=== PATIENT | female | born 1965 | race Caucasian/White ===

== ENCOUNTER 2018-12-28 17:45 | Emergency (ER) | payer MEDICAID ==
[~2018-12-28] VITALS: Ht 160 cm; Wt 52.0 kg
[2018-12-28 17:49] VITALS: Ht 160 cm; Wt 52.0 kg
[2018-12-28] MEDS ORDERED: KETOROLAC 30 MG INJ IM STA (19:31)
[2018-12-28] MEDS ORDERED: HYDR-4011 PO (19:42)
[2018-12-28] MEDS ORDERED: IBUP-1542 PO (19:42)
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
[2018-12-28] MEDS ORDERED: DEXAMETHASONE 10 MG/ML 1 ML INJ IM ONE (20:00)
[2018-12-28] MEDS ORDERED: PRED20TA PO (21:23)
[2018-12-28] MEDS ORDERED: LORA-441 PO (21:23)
[2018-12-28] MEDS ORDERED: LORAZEPAM 0.5 MG TAB PO ONE (21:30)
[2018-12-28 21:36] VITALS: BP 164/89; PULSE 82; RESP 20
== END 2018-12-28 21:38 | disposition home or self-care (01) ==
LOC: FTE 17:45
DX: S40.011A Contusion of right shoulder, initial encounter (principal); F17.210 Nicotine dependence, cigarettes, uncomplicated; V49.50XA Passenger injured in collision with unspecified motor vehicles in traffic accident, initial encounter
CPT/HCPCS: 70450; 73030; J1100; J1885; Z7610

== ENCOUNTER 2019-01-02 21:23 | Emergency (ER) | payer MEDICAID ==
[~2019-01-02] VITALS: Ht 157.5 cm; Wt 49.3 kg
[~2019-01-02 21:23] MED LIST: HYDR-4011 PO; IBUP-1542 PO; LORA-441 PO; PRED20TA PO
[2019-01-02 21:29] VITALS: Ht 157.5 cm; Wt 49.3 kg
[2019-01-03] MEDS ORDERED: KETOROLAC 60 MG INJ IM STA (00:03)
[2019-01-03] MEDS ORDERED: LORAZEPAM 2 MG INJ IM ONE (00:30)
[2019-01-03] MEDS ORDERED: TRAM50TA2 PO (01:16)
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
[2019-01-03 01:40] VITALS: BP 151/92; PULSE 72; RESP 18
== END 2019-01-03 01:40 | disposition home or self-care (01) ==
LOC: E/R 21:23
DX: R10.84 Generalized abdominal pain (principal); E03.9 Hypothyroidism, unspecified; F17.210 Nicotine dependence, cigarettes, uncomplicated
CPT/HCPCS: 73030; 74176; 96372; J1885; J2060; Z7502; Z7610

== ENCOUNTER 2019-01-14 14:58 | Emergency (ER) | payer MEDICAID ==
[~2019-01-14] VITALS: Ht 160 cm; Wt 48.7 kg
[~2019-01-14 14:58] MED LIST changes: +IBUP800T48 PO; +LISI-471 PO; +TRAM50TA2 PO
[2019-01-14 15:01] VITALS: BP 175/107; PULSE 98; RESP 18; Ht 160 cm; Wt 48.7 kg
[2019-01-14] MEDS ORDERED: KETOROLAC 30 MG INJ IM STA (16:27)
[2019-01-14] MEDS ORDERED: LORAZEPAM 1 MG TAB PO ONE (16:30)
[2019-01-14] MEDS ORDERED: DEXAMETHASONE 10 MG/ML 1 ML INJ IM ONE (16:30)
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
== END 2019-01-14 18:17 | disposition home or self-care (01) ==
LOC: FTE 14:58
DX: M54.5 Low back pain (principal); F17.210 Nicotine dependence, cigarettes, uncomplicated; M25.512 Pain in left shoulder
CPT/HCPCS: 72131; 96372; J1100; J1885; Z7502; Z7610

== ENCOUNTER 2019-01-17 20:54 | Emergency (ER) | payer MEDICAID ==
[~2019-01-17] VITALS: Ht 162.6 cm; Wt 49.1 kg
[2019-01-17 21:18] VITALS: Ht 162.6 cm; Wt 49.1 kg
[2019-01-18] MEDS ORDERED: morphine 4 MG/ML VIAL IV STA (00:45)
[2019-01-18] MEDS ORDERED: ONDANSETRON 4 MG INJ IV STA (00:45)
--- NOTE | 2019-01-18 01:29 | ERD ---
ER Documentation Chief Complaint Chief Complaint SENT BY PMD FOR HIGH BP AND VISION CHANGE GIVEN CLONIDINE AT [facility] This is a very pleasant 53-year-old semi-pain if elevated blood pressure and she says she has some mild blurry vision associated with it. She is compliant the clinic and sent here to the ER. She denies chest pain fevers chills. She did complain of mild headache. Nonfocal neurologically. Headache is mild to moderate intensity with no exacerbating relieving factors. Denies any current issues. ROS All systems reviewed and are negative except as per history of present illness. Medications Home Meds Active Scripts Lisinopril* (Lisinopril*) 20 Mg Tablet, 20 MG PO DAILY, #30 TAB Prov:LULU CARMONA 01/18/19 Ibuprofen* (Motrin*) 800 Mg Tab, 800 MG PO Q6H PRN for PAIN AND OR ELEVATED TEMP, #30 TAB Prov:DISHIGRIKIANALEXUR N PA-C 01/14/19 Tramadol HCl (Tramadol HCl) 50 Mg Tablet, 50 MG PO Q4 PRN for PAIN, #20 TAB Prov:WERNERIGRIKIANALEXUR N PA-C 01/14/19 Lorazepam* (Ativan*) 0.5 Mg Tablet, 0.5 MG PO Q8H PRN for ANXIETY, #10 TAB Prov:ROSEY TEJEDA-C 12/28/18 Prednisone* (Prednisone*) 20 Mg Tab, 40 MG PO DAILY for 4 Days, TAB Prov:ROSEY TEJEDA PA-C 12/28/18 Ibuprofen* (Motrin*) 600 Mg Tab, 600 MG PO Q6H PRN for PAIN AND OR ELEVATED TEMP, #30 TAB Prov:ROSEY TEJEDA PA-C 12/28/18 Hydrocodone/Acetaminophen ([place] 5-325 Tablet) 1 Each Tablet, 1 TAB PO Q6H PRN for PAIN, #7 TAB Prov:ROSEY TEJEDA-C 12/28/18 Allergies Allergies: Coded Allergies: No Known Allergy (Unverified , 12/28/18) PMhx/Soc History of Surgery: Yes (Tonsillectomy ) Anesthesia Reaction: No Hx Neurological Disorder: No Hx Respiratory Disorders: No Hx Cardiac Disorders: Yes (Hyperlipidemia, HTN) Hx Psychiatric Problems: No Hx Miscellaneous Medical Probl: Yes (HYPERTHYROIDISM, Kidney stone) Hx Alcohol Use: No Hx Substance Use: No Hx Tobacco Use: Yes (2 sticks everyday) Smoking Status: Current every day smoker Physical Exam Vitals Vital Signs Date Temp Pulse Resp B/P (MAP) Pulse Ox O2 O2 Flow FiO2 Time Delivery Rate 01/18/19 74 15 149/94 100 Room Air 00:35 (112) 01/17/19 97.5 87 18 164/98 100 21:18 (120) Physical Exam Const: No acute distress Head: Atraumatic Eyes: Normal Conjunctiva ENT: Normal External Ears, Nose and Mouth. Neck: Full range of motion. No meningismus. Resp: Clear to auscultation bilaterally Cardio: Regular rate and rhythm, no murmurs Abd: Soft, non tender, non distended. Normal bowel sounds Skin: No petechiae or rashes Back: No midline or flank tenderness Ext: No cyanosis, or edema Neur: Awake and alert Psych: Normal Mood and Affect Result Diagram: 01/18/19 0028 01/18/19 0028 Results 24 hrs Laboratory Tests Test 01/18/19 00:28 White Blood Count 10.9 10^3/ul Red Blood Count 4.71 10^6/ul Hemoglobin 14.1 g/dl Hematocrit 42.1 % Mean Corpuscular Volume 89.4 fl Mean Corpuscular Hemoglobin 29.9 pg Mean Corpuscular Hemoglobin Concent 33.5 g/dl Red Cell Distribution Width 12.5 % Platelet Count 216 10^3/UL Mean Platelet Volume 10.2 fl Immature Granulocytes % 0.600 % Neutrophils % 53.5 % Lymphocytes % 36.3 % Monocytes % 8.9 % Eosinophils % 0.1 % Basophils % 0.6 % Nucleated Red Blood Cells % 0.0 /100WBC Immature Granulocytes # 0.070 10^3/ul Neutrophils # 5.8 10^3/ul Lymphocytes # 3.9 10^3/ul Monocytes # 1.0 10^3/ul Eosinophils # 0.0 10^3/ul Basophils # 0.1 10^3/ul Nucleated Red Blood Cells # 0.0 10^3/ul Prothrombin Time 11.4 Sec Prothrombin Time Ratio 0.9 INR International Normalized Ratio 0.82 Activated Partial Thromboplast Time 29.2 Sec Sodium Level 140 mmol/L Potassium Level 3.7 mmol/L Chloride Level 106 mmol/L Carbon Dioxide Level 26 mmol/L Anion Gap 8 Blood Urea Nitrogen 17 mg/dl Creatinine 0.59 mg/dl Est Glomerular Filtrat Rate mL/min > 60 mL/min Glucose Level 104 mg/dl Calcium Level 9.2 mg/dl Troponin I < 0.012 ng/ml Current Medications Medications Dose Sig/Sean Start Time Status Last (Trade) Ordered Route PRN Stop Time Admin Dose Reason Admin Morphine 4 mg ONCE STAT 01/18/19 DC 01/18/19 Sulfate IV 00:45 00:53 (morphine) 01/18/19 00:46 Ondansetron 4 mg ONCE STAT 01/18/19 DC 01/18/19 HCl (Zofran IV 00:45 00:53 Inj) 01/18/19 00:46 Procedures/MDM Visual acuity is 20/20 bilaterally EKG: Rate/Rhythm: Normal Sinus Rhythm QRS, ST, T-waves: No changes consistent w/ acute ischemia Impression: No evidence of ischemia or arrhythmia Chest X-ray 1V Interpreted by me: Soft Tissue: No acute abnormalities Bones: No acute abnormalities Mediastinum/Cardiac Silhouette/Lungs: No acute abnormalities Medical decision making: Patient's neurologic symptoms have stabilized while they have been evaluated in the department and are appropriate for outpatient work up. No e/o meningitis, intracranial bleed, seizure, stroke. Patient's blood p ressure was elevated (>120/80) but appears stable without evidence of hypertension emergency or urgency. The patient was counseled about the risks of hypertension and urged to pursue outpatient monitoring and therapy within a week with their primary care physician. Patient discharged home on lisinopril 20 mg daily. To follow-up with primary care physician. Departure Diagnosis: Primary Impression: Hypertension Hypertension type: unspecified Qualified Codes: I10 - Essential (primary) hypertension Condition: Stable Patient Instructions: High Blood Pressure (Hypertension) LULU CARMONA Jan 18, 2019 01:29
[2019-01-18 01:33] VITALS: BP 150/86; PULSE 70; RESP 14
== END 2019-01-18 01:43 | disposition home or self-care (01) ==
LOC: E/R 20:54
DX: I10 Essential (primary) hypertension (principal); F17.210 Nicotine dependence, cigarettes, uncomplicated
CPT/HCPCS: 36415; 70450; 71045; 80048; 84484; 85025; 85610; 85730; 93005; 96374; 96375; J2270; J2405